=== PATIENT | male | born 1955 | race Caucasian/White ===

== ENCOUNTER → 2016-05-14 | Outpatient (CLI) | payer OTHER ==
[2016-02-27 21:33] VITALS: BP 175/100
[~2016-05-14] MED LIST: HYDR-2666 PO
--- NOTE | 2016-05-14 12:49 | RAD ---
EXAM: Sacrum/coccyx 3 views. HISTORY: Fall with sacrococcygeal pain. COMPARISON: None. FINDINGS: There is no displaced sacral or coccygeal fracture. The sacroiliac joints and pubic symphysis are normally aligned. There mild degenerative changes within the lower lumbar spine. IMPRESSION: 1. No displaced fracture.
== END | disposition home or self-care (01) ==
LOC: RAD 11:53
PROVIDERS: ATTEND Physician Assistant
DX: S39.82XA Other specified injuries of lower back, initial encounter (principal); M47.896 Other spondylosis, lumbar region; X58.XXXA Exposure to other specified factors, initial encounter; Y93.89 Activity, other specified; Y92.89 Other specified places as the place of occurrence of the external cause; Y99.8 Other external cause status
CPT/HCPCS: 72220

== ENCOUNTER → 2016-05-20 | Outpatient (CLI) | payer OTHER ==
[2016-02-27 21:33] VITALS: BP 175/100
[~2016-05-20] MED LIST changes: +GADOBUTROL 7.5 MMOL/7.5 ML VIAL IV ONE
--- NOTE | 2016-05-20 09:42 | RAD ---
PROCEDURE MRI brain without and with contrast. HISTORY Memory loss and weakness TECHNIQUE Multiplanar, multi sequential pre and post contrast MR imaging was performed of the brain. Contrast: 7.5 cc Gadavist COMPARISON None FINDINGS There is no restricted diffusion suggestive of a recent infarct or cytotoxic edema. There is no intra-axial mass effect, midline shift, extra-axial fluid collection. Ventricular size is within normal limits. There is mild to moderate generalized prominence of the subarachnoid spaces greater than expected for the patient's age. There is negligible FLAIR hyperintense signal near the frontal horns, degree of which can be seen in asymptomatic individuals. There is no significant hemosiderin deposition of the brain parenchyma. There is mucous retention cyst of the left maxillary sinus 1.5 cm, adjacent mild to moderate left maxillary sinus mucosal thickening. There is also likely mucous retention cyst at the floor of the right maxillary sinus. There is patchy mild to moderate ethmoid air cell mucosal thickening, also minimal right greater than left frontal sinus mucosal thickening. There is preservation of the major arterial intracranial flow voids at the skull base. IMPRESSION 1. There is no evidence of recent infarct or abnormal intracranial enhancement. 2. There is mild to moderate generalized prominence of the supratentorial subarachnoid spaces greater than expected for the patient's age, may be due to involutional change although could be developmental. 3. There is paranasal sinus mucosal thickening and mucous retention cysts as stated. Electronically signed by: Ignacio Burrows MD (May 20, 2016 09:41:03)
== END | disposition home or self-care (01) ==
LOC: MRI 08:24
PROVIDERS: ATTEND Physician Assistant
DX: R53.1 Weakness (principal); R41.3 Other amnesia; I10 Essential (primary) hypertension; Z79.01 Long term (current) use of anticoagulants
CPT/HCPCS: 70553; A9585

== ENCOUNTER → 2016-10-21 | Day surgery (SDC) | payer OTHER ==
[~2016-10-21] MED LIST changes: +ALPR0.25 PO; +ATEN25TA PO; +CLOP75TA57 PO; +FLUO40CA2 PO; +FLUT50DI IH; -GADOBUTROL 7.5 MMOL/7.5 ML VIAL IV ONE; -HYDR-2666 PO; +HYDR-2758 PO; +HYDROmorphone 2 MG/ML VIAL IV PRN; +IV RINGERS,LACTATED 1000ML 1,000 ML IV SCH; +LIDOCAINE 1% 1 ML SYRINGE. ID PRN; +LIDOCAINE 2% PF Vial for OR 5 ML VIAL. ONE; +MORPHINE SULFATE 2 MG/ML DISP.SYRIN. IV PRN; +ONDANSETRON PF 4 MG/2 ML VIAL. IV PRN; +PROCHLORPERAZINE 10 MG/2 ML VIAL. IV PRN; +PROPOFOL 40 ML IV ONE; +QUET100T4 PO; +QUET50TA5 PO; +TERA10CA3 PO; +TRAZ150T49 PO; +fentaNYL PF VIAL 100 MCG/2 ML VIAL IV PRN
[2016-10-21 14:49] VITALS: BP 150/71
--- NOTE | 2016-10-21 22:40 | CONS ---
DATE OF CONSULTATION: 10/21/2016 REASON FOR CONSULTATION: Rectal bleeding and occasional diarrhea. HISTORY OF PRESENT ILLNESS: This is a 60-year-old male whose past medical history is significant for anxiety, hypertension, CVA, seen with rectal bleeding, been present now for the past several months. He had weight loss of approximately 50 pounds with dental extractions. Family history is unrevealing for IBD, colon cancer or colon polyps. With continued symptoms, he requests additional evaluation. PAST MEDICAL HISTORY: Anxiety, status post CVA, hypertension, history of rectal bleeding. ALLERGIES: None. MEDICATIONS: Include Plavix, alprazolam, Prozac, Flovent, hydrocodone, Seroquel, terazosin and trazodone. PAST SURGICAL HISTORY: Noncontributory. FAMILY HISTORY: Significant for hypertension, diabetes in multiple family members. He is a drinker and a smoker. REVIEW OF SYSTEMS: Per records. PHYSICAL EXAMINATION: GENERAL: Reveals a well-nourished, well-developed male. VITAL SIGNS: Temperature, he is afebrile, pulse 96, respirations 18. HEENT: Normocephalic and atraumatic head. Pupils and extraocular movements are not tested. Sclerae anicteric. NECK: Supple. LUNGS: Clear. CARDIOVASCULAR: Reveals an S1, S2, without S3, S4 or appreciable murmur. ABDOMEN: Reveals a soft abdomen, normal bowel sounds, without appreciable hepatosplenomegaly. EXTREMITIES: Reveals no cyanosis, clubbing or edema. IMPRESSION AND PLAN: Rectal bleeding, etiology is to be determined with the diarrhea and weight loss. Differential includes pancreatic insufficiency, colon cancer, celiac disease, inflammatory bowel disease, collagenous colitis. Therefore, recommend colonoscopy to further assess symptoms. If this is unrevealing, a small bowel series and pancreatic enzymes would be pursued. I would like to thank Marielle Reyes for allowing us to consult and participate in patient's care. GOVIND BALL MD DR: KENYA/jose JOB#: [id number] / [id number]
== END | disposition home or self-care (01) ==
LOC: ENDOS 11:52
PROVIDERS: ATTEND Internal Medicine Gastroenterology
DX: K64.0 First degree hemorrhoids (principal); K52.9 Noninfective gastroenteritis and colitis, unspecified; I10 Essential (primary) hypertension; F41.9 Anxiety disorder, unspecified; Z86.69 Personal history of other diseases of the nervous system and sense organs; Z86.73 Personal history of transient ischemic attack (TIA), and cerebral infarction without residual deficits
CPT/HCPCS: 45378; J2001; J2704

== ENCOUNTER → 2020-07-18 | Outpatient (CLI) | payer MEDICARE, OTHER ==
[2016-10-21 14:49] VITALS: BP 150/71
[~2020-07-18] MED LIST changes: -HYDR-2758 PO; +HYDR-2761 PO; -HYDROmorphone 2 MG/ML VIAL IV PRN; -IV RINGERS,LACTATED 1000ML 1,000 ML IV SCH; -LIDOCAINE 1% 1 ML SYRINGE. ID PRN; -LIDOCAINE 2% PF Vial for OR 5 ML VIAL. ONE; -MORPHINE SULFATE 2 MG/ML DISP.SYRIN. IV PRN; -ONDANSETRON PF 4 MG/2 ML VIAL. IV PRN; -PROCHLORPERAZINE 10 MG/2 ML VIAL. IV PRN; -PROPOFOL 40 ML IV ONE; -fentaNYL PF VIAL 100 MCG/2 ML VIAL IV PRN
--- NOTE | 2020-07-18 15:22 | CARD ---
MR#: [id number] Date of Study: 07/18/2020 Ordering Physician: CHANTELL RICHARD, Referring Physician: CHANTELL RICHARD, Tech: Eda Sheehan Kinjalsky, [facility] APPROVED REPORT EXAM: Two-dimensional and M-mode echocardiogram with Doppler and color Doppler. Other Information Quality : AverageHR: 76bpm INDICATION Leg Edema RISK FACTORS Hypertension 2D DIMENSIONS Left Atrium(2D)3.2 (1.6-4.0cm)IVSd0.9 (0.7-1.1cm) Aortic Root(2D)3.1 (2.0-3.7cm)LVDd4.9 (3.9-5.9cm) LVOT Diameter2.0 (1.8-2.4cm)PWd0.9 (0.7-1.1cm) LVDs3.5 (2.5-4.0cm)FS (%) 27.7 % SV60.8 mlLVEF(%)53.6 (>50%) Aortic Valve AoV Peak Freddy.125.3cm/sAoV VTI33.7cm AO Peak GR.6.3mmHgLVOT VTI 26.77cm AO Mean GR.5mmHgAI P 1/2 [id number] Mitral Valve MV E Amuvovjc00.3cm/sMV DECEL [id number] MV A Ptoxkeic26.1cm/sE/A Ratio1.0 TDI Lateral E' P. V11.78cm/sMedial E' P. V6.76cm/s E/Lateral E'8.3E/Medial E'14.4 Tricuspid Valve TR P. Wmopdhfr501fr/sRAP [id number] TR Peak Gr.02yzFjUNVS07scEt Pulmonary Vein S1 Kfiiebox20.2cm/sS2 Iascsuhb52.85cm/s D2 Dkutdasx86.8cm/sPVa [id number] LEFT VENTRICLE The left ventricle is normal size. There is normal left ventricular wall thickness. The left ventricu lar systolic function is normal. The Ejection Fraction is 55%. There is normal LV segmental wall dayanara on. RIGHT VENTRICLE The right ventricle is normal size. There is normal right ventricular wall thickness. The right ventr icular systolic function is normal. ATRIA The left atrium size is normal. The right atrium size is normal. The interatrial septum is intact wit h no evidence for an atrial septal defect or patent foramen ovale as noted on 2-D or Doppler imaging. AORTIC VALVE The aortic valve is normal in structure and function. Doppler and Color Flow revealed trace aortic re gurgitation. There is no significant aortic valvular stenosis. Calculated aortic valve area is 2.47 c m2 with maximum pressure gradient of 11 mmHg and mean pressure gradient of 6 mmHg. MITRAL VALVE The mitral valve is normal in structure and function. There is no evidence of mitral valve prolapse. There is no mitral valve stenosis. Doppler and Color-flow revealed trace mitral regurgitation. TRICUSPID VALVE The tricuspid valve is normal in structure and function. Doppler and Color Flow revealed trace tricus pid regurgitation with an estimated PAP of 33 mmHg. There is no tricuspid valve stenosis. PULMONIC VALVE The pulmonic valve is not well visualized. Doppler and Color Flow revealed trace pulmonic valvular re gurgitation. GREAT VESSELS The aortic root is normal in size. The IVC is normal in size and collapses >50% with inspiration. PERICARDIAL EFFUSION There is no evidence of significant pericardial effusion. Critical Notification Critical Value: No <Conclusion> The left ventricular systolic function is normal. The Ejection Fraction is 55%. There is normal LV segmental wall motion. Trace mitral regurgitation. Trace tricuspid regurgitation with an estimated PAP of 33 mmHg. There is no evidence of significant pericardial effusion. Signed by : Juanito Barron, Electronically Approved : 07/18/2020 15:21:56
== END ==
LOC: ECHO 13:23
PROVIDERS: ATTEND Family Medicine
DX: R60.0 Localized edema (principal)
CPT/HCPCS: 93306